=== PATIENT | male | born 1945 ===

== ENCOUNTER 2017-02-12 14:32 | Emergency (ER) | payer SELFPAY ==
--- NOTE | 2017-02-12 15:00 | C.PDOC ---
History Of Present Illness Patient is a 71 y/o M with htn and dm, presenting after being told that his BP and sugar was high in [facility] 4 days ago. Reports that he is not hungry and has acid taste in his mouth and was concerned that this meant his BP was high. Denies chest pain, shortness of breath, numbness, tingling, vision changes, abdominal pain, vomiting, diarrhea, fever. Time Seen by Provider: 02/12/17 14:49 Chief Complaint (Nursing): High Blood Pressure Past Medical History Vital Signs: Last Vital Signs Temp 97.7 F 02/12/17 14:39 Pulse 96 H 02/12/17 16:06 Resp 18 02/12/17 16:06 BP 111/78 02/12/17 16:06 Pulse Ox 97 02/12/17 17:47 - Medical History PMH: HTN Family History: States: No Known Family Hx - Social History Hx Alcohol Use: No Hx Substance Use: No - Immunization History Hx Tetanus Toxoid Vaccination: No Hx Influenza Vaccination: No Hx Pneumococcal Vaccination: No Review Of Systems Constitutional: Positive for: Other (decrease appetite). Negative for: Fever, Chills Eyes: Negative for: Vision Change Cardiovascular: Negative for: Chest Pain, Palpitations, Orthopnea, Paroxysmal Noc. Dyspnea Respiratory: Negative for: Cough, Shortness of Breath, SOB with Excertion, Wheezing Gastrointestinal: Negative for: Nausea, Vomiting, Abdominal Pain, Diarrhea, Constipation Genitourinary: Negative for: Dysuria Neurological: Negative for: Weakness, Numbness, Confusion, Seizures, Altered Mental Status, Headache, Dizziness Physical Exam - Physical Exam Appears: Well, Non-toxic, No Acute Distress Skin: Normal Color, Warm, Dry Head: Atraumatic, Normacephalic Eye(s): bilateral: Normal Inspection, PERRL, EOMI Neck: Supple Cardiovascular: Rhythm Regular Respiratory: Normal Breath Sounds Gastrointestinal/Abdominal: Normal Exam, Soft, No Tenderness Back: Normal Inspection, No CVA Tenderness Extremity: Normal ROM, No Pedal Edema Neurological/Psych: Oriented x3, Normal Speech, Normal Cognition, Normal Cranial Nerves Gait: Steady ED Course And Treatment - Laboratory Results Result Diagrams: 02/12/17 15:36 02/12/17 15:36 O2 Sat by Pulse Oximetry: 97 Medical Decision Making Medical Decision Making: EKG shows NSR at 97bpm with normal intervals and no ST changes. Cxray negative. Trop negative. Feels better after IVF. BP has reamined WNL. FS: 176 and 152 in ED. Patient instructed on importance of PMD follow-up. Disposition - Disposition Disposition: HOME/ ROUTINE Disposition Time: 17:46 Condition: GOOD Additional Instructions: Follow-up with PMD within 2 days. Return to ED if condition worsens. Instructions: Diabetes Mellitus Type 2 in Adults (ED), Hypertension (ED) Forms: [employer] (Maori), [employer] (Iranian), Gen Discharge Inst Iranian Print Language: DIVEHI - Clinical Impression Clinical Impression: Hypertension, Diabetes, Dehydration
[2017-02-12 15:48] LABS: BASO # 0.1 K/uL (0.0-0.2); BASO % 0.8 % (0.0-2.0); EOS % 0.1 % (0.0-4.0); HEMATOCRIT 41.7 % (35.0-51.0); LYMPH # 1.4 K/uL (1.0-4.3); LYMPH % 14.8 % (20.0-40.0); MEAN CELL VOLUME 89.3 fL (80.0-94.0); MEAN CORPUSCULAR HEMOGLOBIN 30.3 pg (27.0-31.0); MEAN PLATELET VOLUME 7.8 fL (7.2-11.7); MONO # 1.2 K/uL (0.0-0.8); MONO % 12.1 % (0.0-10.0); RED CELL DISTRIBUTION WIDTH 13.7 % (11.5-14.5); WHITE BLOOD COUNT 9.6 K/uL (4.8-10.8)
[2017-02-12 15:57] LABS: CHLORIDE 95 mmol/L (98-107); SODIUM 128 mmol/L (132-148)
[2017-02-12 15:58] LABS: POTASSIUM 3.9 mmol/L (3.6-5.2)
[2017-02-12 15:59] LABS: GFR AFRICAN-AMERICAN > 60
[2017-02-12 16:00] LABS: ALB/GLOB RATIO 0.8 (1.0-2.1); ALKALINE PHOSPHATASE 108 U/L (38-126); ALT/SGPT 49 U/L (21-72); AST/SGOT 23 U/L (17-59); BILIRUBIN,TOTAL 0.4 mg/dL (0.2-1.3); BLOOD UREA NITROGEN 14 mg/dL (9-20); CARBON DIOXIDE 22 mmol/L (22-30); GLUCOSE,RANDOM 152 mg/dL (75-110); TOTAL PROTEIN 8.3 g/dL (6.3-8.3)
[2017-02-12 16:01] LABS: CALCIUM 8.3 mg/dl (8.6-10.4)
--- NOTE | 2017-02-12 16:10 | RAD ---
HISTORY: htn COMPARISON: No prior. TECHNIQUE: Chest PA and lateral FINDINGS: LUNGS: No active pulmonary disease. PLEURA: No significant pleural effusion identified. No pneumothorax apparent. CARDIOVASCULAR: Normal. OSSEOUS STRUCTURES: No significant abnormalities. VISUALIZED UPPER ABDOMEN: Normal. OTHER FINDINGS: None. IMPRESSION: No active disease.
[2017-02-12 16:13] VITALS: O2SAT 97
[2017-02-12] MEDS ORDERED: Sodium Chloride 0.9% 1,000 ML IV ONE (16:24)
[2017-02-12] MEDS ORDERED: Sodium Chloride 0.9% 1,000 ML ONE (16:31)
[2017-02-12 18:00] VITALS: BP 105/57; PULSE 90; RESP 20; TEMP 99
--- NOTE | 2017-02-14 16:58 | CARD ---
APPROVED REPORT EKG Measurement Heart [id number] <Conclusion> Normal sinus rhythm Normal ECG
== END 2017-02-12 18:00 | disposition home or self-care (01) ==
LOC: C.ER 14:32
DX: I10 Essential (primary) hypertension (principal); E11.9 Type 2 diabetes mellitus without complications; E86.0 Dehydration
CPT/HCPCS: 71020; 80053; 82948; 84484; 85025; 96360; 99285; J7040